=== PATIENT | male | born 1985 | race Caucasian/White ===

== ENCOUNTER 2017-03-24 06:27 | Emergency (ER) | payer MEDICAID ==
[2017-03-24] MEDS ORDERED: NS 1,000 ML IV ONE ×2 (06:44→07:07)
[2017-03-24] MEDS ORDERED: ONDANSETRON 4 MG/2 ML VIAL IVP ONE ×2 (06:44→07:21)
[2017-03-24] MEDS ORDERED: HALOPERIDOL LACT 5 MG/ML INJ IVP ONE ×2 (06:48→07:07)
--- NOTE | 2017-03-24 06:52 | EDPHY ---
H & P Stated Complaint: c/o n/v/abd pain starting this am Time Seen by Provider: 03/24/17 06:47 HPI/ROS: CHIEF COMPLAINT: Vomiting HISTORY OF PRESENT ILLNESS: The patient is a 31-year-old man with a history of cannabis hyperemesis syndrome as well as remote intussusception and ectopic gastric the mucosa. He complains of severe nausea and retching that began at 4: 30 a.m. this morning. No pain. No fever. He does continue to use cannabis daily. He denies, ingestants currently. No blood in his vomit. No diarrhea. REVIEW OF SYSTEMS: Constitutional: denies: chills, fever, recent illness, recent injury EENTM: denies: blurred vision, double vision, nose congestion Respiratory: denies: cough, shortness of breath Cardiac: denies: chest pain, irregular heart rate, lightheadedness, palpitations Gastrointestinal/Abdominal: See HPI Genitourinary: denies: dysuria, frequency, hematuria, pain Musculoskeletal: denies: joint pain, muscle pain Skin: denies: lesions, rash, jaundice, bruising Neurological: denies: headache, numbness, paresthesia, tingling, dizziness, weakness Hematologic/Lymphatic: denies: blood clots, easy bleeding, easy bruising Immunologic/allergic: denies: HIV/AIDS, transplant EXAM: GENERAL: retching HEAD: Atraumatic, normocephalic. EYES: Pupils equal round and reactive to light, extraocular movements intact, sclera anicteric, conjunctiva are normal. ENT: TMs normal, nares patent, oropharynx clear without exudates. Moist mucous membranes. NECK: Normal range of motion, supple without lymphadenopathy or JVD. LUNGS: Breath sounds clear to auscultation bilaterally and equal. No wheezes rales or rhonchi. HEART: Regular rate and rhythm without murmurs, rubs or gallops. ABDOMEN: Soft, nontender, normoactive bowel sounds. No guarding, no rebound. No masses appreciated. BACK: No CVA tenderness, no spinal tenderness, step-offs or deformities EXTREMITIES: Normal range of motion, no pitting or edema. No clubbing or cyanosis. NEUROLOGICAL: Cranial nerves II through XII grossly intact. Normal speech, normal gait. 5/5 strength, normal movement in all extremities, normal sensation PSYCH: Normal mood, normal affect. SKIN: Warm, dry, normal turgor, no visible rashes or lesions. Source: Patient Exam Limitations: No limitations - Medical/Surgical History Hx Asthma: Yes Hx Chronic Respiratory Disease: No Hx Diabetes: No Hx Cardiac Disease: No Hx Renal Disease: No Hx Cirrhosis: No Hx Alcoholism: No Hx HIV/AIDS: No Hx Splenectomy or Spleen Trauma: No Other PMH: SURG--STOMACH TUMOR, cannabis hyperemesis, gastric ulcer, gerd, asthma - Family History Significant Family History: No pertinent family hx - Social History Smoking Status: Former smoker Alcohol Use: Sober Drug Use: None Constitutional: Initial Vital Signs Temperature (C) 36.8 C 03/24/17 06:31 Heart Rate 121 H 03/24/17 06:31 Respiratory Rate 22 H 03/24/17 06:31 Blood Pressure 144/99 H 03/24/17 06:31 O2 Sat (%) 95 03/24/17 06:31 O2 Delivery Mode Room Air Allergies/Adverse Reactions: No Known Allergies Allergy (Verified 03/24/17 06:36) Home Medications: Medication Instructions Recorded Calcium Carbonate [Tums 500MG (*)] 500 mg PO TID PRN 11/30/15 Fexofenadine HCl [Rebeka Allergy] 60 mg PO DAILY 11/30/15 Ondansetron Odt [Zofran Odt 4 mg 4 mg PO Q4 PRN #20 tab 03/24/17 (RX)] Zantac 03/24/17 Medical Decision Making ED Course/Re-evaluation: 8:00 a.m. the patient's vomiting and abdominal cramping have resolved however he is feeling anxious after the Haldol. He states that anxiety attacks are something he suffers from regularly any ways. 8:45 a.m. the patient continues to feel well as far as not having nausea vomiting or abdominal pain. He persistent feeling anxious though. He is asking for Ativan. I will treat him with this and observe. He is tolerating p. o.. He is ambulatory here in the department. 10:20 a.m. patient is sleeping comfortably. We are waiting for his mom to give him a ride home. Differential Diagnosis: Partial list of the Differential diagnosis considered include but were not limited to; cyclic vomiting, cannabis hyperemesis, anxiety and although unlikely based on the history and physical exam, I also considered peptic ulcer disease, appendicitis, obstruction, ischemia, volvulus. I discussed these differential diagnoses and the plan with the patient as well as the usual and expected course. The patient understands that the diagnosis is provisional and that in medicine we are not always correct and that further workup is often warranted. Usual and customary warnings were given. All of the patient's questions were answered. The patient was instructed to return to the emergency department should the symptoms at all worsen or return, otherwise to followup with the physician as we discussed. - Data Points Medications Given: Discontinued Medications Al Hydroxide/Mg Hydroxide (Maalox Susp) 30 ml PO EDNOW ONE Stop: 03/24/17 07:11 Last Admin: 03/24/17 09:55 Dose: Not Given Haloperidol Lactate (Haldol Injection) 5 mg IVP EDNOW ONE Stop: 03/24/17 06:49 Last Admin: 03/24/17 06:51 Dose: 5 mg Haloperidol Lactate (Haldol Injection) 5 mg IVP EDNOW ONE Stop: 03/24/17 07:08 Last Admin: 03/24/17 07:09 Dose: 5 mg Sodium Chloride (Ns) 1,000 mls @ 0 mls/hr IV EDNOW ONE; Wide Open PRN Reason: Protocol Stop: 03/24/17 06:45 Last Admin: 03/24/17 06:46 Dose: 1,000 mls Sodium Chloride (Ns) 1,000 mls @ 0 mls/hr IV EDNOW ONE; Wide Open PRN Reason: Protocol Stop: 03/24/17 07:08 Last Admin: 03/24/17 07:12 Dose: 1,000 mls Lorazepam (Ativan Injection) 1 mg IVP EDNOW ONE Stop: 03/24/17 08:45 Last Admin: 03/24/17 08:54 Dose: 1 mg Ondansetron HCl (Zofran) 4 mg IVP EDNOW ONE Stop: 03/24/17 06:45 Last Admin: 03/24/17 06:48 Dose: 4 mg Ondansetron HCl (Zofran) 4 mg IVP EDNOW ONE Stop: 03/24/17 07:22 Last Admin: 03/24/17 07:23 Dose: 4 mg Promethazine HCl (Phenergan) 12.5 mg IVP ONCE ONE Stop: 03/24/17 09:52 Last Admin: 03/24/17 09:54 Dose: 12.5 mg Departure - Departure Disposition: Home, Routine, Self-Care Clinical Impression: Cannabis hyperemesis syndrome concurrent with and due to cannabis abuse Condition: Fair Instructions: Acute Nausea and Vomiting (ED) Referrals: NONE *PRIMARY CARE P,. [Primary Care Provider] - As per Instructions [facility],. [Clinic] - As per Instructions Prescriptions: Ondansetron Odt [Zofran Odt 4 mg (RX)] 4 mg PO Q4 PRN #20 tab PRN Reason: Nausea & Vomiting
[2017-03-24] MEDS: MAG HYDROX/AL HYDROX/SIMETH 30 ML UDCUP PO ONE ×2 (07:12→09:55)
[2017-03-24] MEDS ORDERED: LORazepam 2 MG/ML INJ IVP ONE (08:44)
[2017-03-24] MEDS ORDERED: PROMETHAZINE HCL 25 MG/ML INJ IVP ONE (09:51)
[2017-03-24 10:13] VITALS: BP 143/98; PULSE 102; RESP 18; TEMP 97.3; O2SAT 95
== END 2017-03-24 10:36 | disposition home or self-care (01) ==
DX: F12.188 Cannabis abuse with other cannabis-induced disorder (principal); J45.909 Unspecified asthma, uncomplicated; E86.9 Volume depletion, unspecified; Z87.891 Personal history of nicotine dependence
CPT/HCPCS: 96374; J1630; J2060; J2405; J2550

== ENCOUNTER 2017-03-27 03:21 | Emergency (ER) | payer MEDICAID ==
[2017-03-27] MEDS ORDERED: FAMOTIDINE 20 MG/NACL 50 ML IV ONE (03:24)
[2017-03-27] MEDS ORDERED: NS 1,000 ML IV ONE ×2 (03:24→04:18)
[2017-03-27] MEDS ORDERED: HALOPERIDOL LACT 5 MG/ML INJ IVP ONE (03:24)
[2017-03-27 03:32] LABS: PLATELET COUNT 249 10^3/uL (150-400)
--- NOTE | 2017-03-27 04:18 | EDPHY ---
H & P Stated Complaint: Nausea and vomiting Time Seen by Provider: 03/27/17 03:24 HPI/ROS: HPI The patient presents brought in by ambulance for nausea and vomiting which has been present for the last 36 hr. He reports that he has not been able to have any p.o. intake during this time. He has a history of cannabinoid hyperemesis syndrome. He was seen in the emergency room just 4 days ago for this. He felt better after receiving medications including Haldol and Ativan. He went home in use marijuana and within 1 hr he was experiencing vomiting. He denies any abdominal pain currently. He does not have any medication at home that has helped him with this. He says hot showers help his symptoms. In the ambulance, blood glucose was normal, he received 4 of Zofran which helped his symptoms somewhat. REVIEW OF SYSTEMS Constitutional: No fever, no chills. Eyes: No discharge. ENT: No sore throat. Cardiovascular: No chest pain, no palpitations. Respiratory: No cough, no shortness of breath. Gastrointestinal: See HPI Genitourinary: No hematuria. Musculoskeletal: No back pain. Skin: No rashes. Neurological: No headache. PMHx: History of cannabinoid hyperemesis syndrome Soc Hx: Currently residing at a hotel, daily long-term marijuana user PHYSICAL General Appearance: Alert, no distress Eyes: Pupils equal and round no pallor or injection ENT, Mouth: Mucous membranes dry Respiratory: There are no retractions, lungs are clear to auscultation Cardiovascular: Regular rate and rhythm Gastrointestinal: Abdomen is soft and non-tender, no masses, bowel sounds normal Neurological: A&O, moves all extremities Skin: Warm and dry, no rashes Musculoskeletal: Neck is supple non tender Extremities: symmetrical, full range of motion Psychiatric: Patient is oriented X 3, there is no agitation Source: Patient Exam Limitations: No limitations - Medical/Surgical History Hx Asthma: Yes Hx Chronic Respiratory Disease: No Hx Diabetes: No Hx Cardiac Disease: No Hx Renal Disease: No Hx Cirrhosis: No Hx Alcoholism: No Hx HIV/AIDS: No Hx Splenectomy or Spleen Trauma: No Other PMH: SURG--STOMACH TUMOR, cannabis hyperemesis, gastric ulcer, gerd, asthma - Social History Smoking Status: Former smoker Allergies/Adverse Reactions: No Known Allergies Allergy (Verified 03/24/17 06:36) Home Medications: Medication Instructions Recorded Calcium Carbonate [Tums 500MG (*)] 500 mg PO TID PRN 11/30/15 Fexofenadine HCl [Rebeka Allergy] 60 mg PO DAILY 11/30/15 Ondansetron Odt [Zofran Odt 4 mg 4 mg PO Q4 PRN #20 tab 03/24/17 (RX)] Zantac 03/24/17 Medical Decision Making Procedures: Bedside right upper quadrant limited abdominal Ultrasound- performed and interpreted by me. Indication: Elevated bilirubin and vomiting Findings: No gallstones, no pericholecystic fluid, no gallbladder wall thickening Impression: No sonographic evidence of cholecystitis or cholelithiasis. Differential Diagnosis: 31-year-old male brought in by ambulance for nausea and vomiting for 36 hr thought to be caused by cannabinoid hyperemesis syndrome in the setting of marijuana use. On exam, he is slightly tachycardic, mucous membranes are dry, abdominal exam is benign. Differential diagnosis includes cannabinoid hyperemesis syndrome, cyclic vomiting syndrome, dehydration, electrolyte disturbance. In the emergency department, patient was given IV fluids, famotidine, Haldol. He had improvement in his symptoms. Labs were checked and did reveal elevated bilirubin level. Because of this ultrasound was performed and did not show any signs of a biliary disease. After fluids, he was hit feeling much better and was able to tolerate water by mouth. He would like to be discharged home. He already has Zofran at home. I counseled him extensively on terminating his marijuana use as this is likely contributing to his current symptoms. He is in agreement with this. - Data Points Laboratory Results: Laboratory Results 03/27/17 03:20 03/27/17 03:20 03/27/17 03/27/17 03:20 03:20 WBC 13.93 10^3/uL H 10^3/uL (3.80-9.50) RBC 5.64 10^6/uL 10^6/uL (4.40-6.38) Hgb 17.5 g/dL g/dL (13.7-17.5) Hct 48.7 % % (40.0-51.0) MCV 86.3 fL fL (81.5-99.8) MCH 31.0 pg pg (27.9-34.1) MCHC 35.9 g/dL g/dL (32.4-36.7) RDW 14.0 % % (11.5-15.2) Plt Count 249 10^3/uL 10^3/uL (150-400) MPV 10.7 fL fL (8.7-11.7) Neut % (Auto) 79.8 % H % (39.3-74.2) Lymph % (Auto) 10.9 % L % (15.0-45.0) [place] % (Auto) 8.5 % % (4.5-13.0) Eos % (Auto) 0.1 % L % (0.6-7.6) Baso % (Auto) 0.2 % L % (0.3-1.7) Nucleat RBC Rel Count 0.0 % % (0.0-0.2) Absolute Neuts (auto) 11.11 10^3/uL H 10^3/uL (1.70-6.50) Absolute Lymphs (auto) 1.52 10^3/uL 10^3/uL (1.00-3.00) Absolute Monos (auto) 1.19 10^3/uL H 10^3/uL (0.30-0.80) Absolute Eos (auto) 0.01 10^3/uL L 10^3/uL (0.03-0.40) Absolute Basos (auto) 0.03 10^3/uL 10^3/uL (0.02-0.10) Absolute Nucleated RBC 0.00 10^3/uL 10^3/uL (0-0.01) Immature Gran % 0.5 % % (0.0-1.1) Immature Gran # 0.07 10^3/uL 10^3/uL (0.00-0.10) Sodium 147 mEq/L H mEq/L (135-145) Potassium 3.2 mEq/L L mEq/L (3.5-5.2) Chloride 103 mEq/L mEq/L (97-110) Carbon Dioxide 25 mEq/l mEq/l (22-31) Anion Gap 19 mEq/L H mEq/L (8-16) BUN 15 mg/dL mg/dL (7-23) Creatinine 0.9 mg/dL mg/dL (0.7-1.3) Estimated GFR > 60 Glucose 123 mg/dL H mg/dL (70-100) Calcium 9.2 mg/dL mg/dL (8.5-10.4) Total Bilirubin 2.5 mg/dL H mg/dL (0.1-1.4) Conjugated Bilirubin 1.0 mg/dL H mg/dL (0.0-0.5) Unconjugated Bilirubin 1.5 mg/dL H mg/dL (0.0-1.1) AST 61 IU/L H IU/L (17-59) ALT 48 IU/L IU/L (21-72) Alkaline Phosphatase 74 IU/L IU/L (38-126) Total Protein 7.7 g/dL g/dL (6.3-8.2) Albumin 4.6 g/dL g/dL (3.5-5.0) Lipase 26 IU/L IU/L (23-300) Medications Given: Discontinued Medications Haloperidol Lactate (Haldol Injection) 2.5 mg IVP EDNOW ONE Stop: 03/27/17 03:25 Last Admin: 03/27/17 03:33 Dose: 2.5 mg Sodium Chloride (Ns) 1,000 mls @ 0 mls/hr IV EDNOW ONE; Wide Open PRN Reason: Protocol Stop: 03/27/17 03:25 Last Admin: 03/27/17 03:33 Dose: 1,000 mls Famotidine/Sodium Chloride (Pepcid 20 Mg (Premix)) 50 mls @ 200 mls/hr IV EDNOW ONE Stop: 03/27/17 03:38 Last Admin: 03/27/17 03:34 Dose: 50 mls Sodium Chloride (Ns) 1,000 mls @ 0 mls/hr IV EDNOW ONE; Wide Open PRN Reason: Protocol Stop: 03/27/17 04:19 Last Admin: 03/27/17 04:23 Dose: 1,000 mls Departure - Departure Disposition: Home, Routine, Self-Care Clinical Impression: Cannabinoid hyperemesis syndrome Nausea & vomiting Qualifiers: Vomiting type: unspecified Vomiting Intractability: non-intractable Qualified Code(s): R11.2 - Nausea with vomiting, unspecified Condition: Good Instructions: Acute Nausea and Vomiting (ED) Additional Instructions: Please make sure to drink clear fluids. You should return to the emergency department if your worse in any way. Referrals: [facility],. [Clinic] - As per Instructions
[2017-03-27 06:01] VITALS: O2SAT 98
[2017-03-28 06:13] VITALS: PULSE 115
[2017-03-28 06:14] VITALS: BP 145/89; RESP 20; TEMP 98.1
== END 2017-03-27 06:01 | disposition home or self-care (01) ==
LOC: EDUNIT#
DX: R11.2 Nausea with vomiting, unspecified (principal); F12.188 Cannabis abuse with other cannabis-induced disorder; E86.9 Volume depletion, unspecified; J45.909 Unspecified asthma, uncomplicated; Z87.891 Personal history of nicotine dependence
CPT/HCPCS: 96365; J1630

== ENCOUNTER 2017-04-07 02:10 | Emergency (ER) | payer MEDICAID ==
[2017-04-07 02:17] VITALS: RESP 18; TEMP 98.2
[2017-04-07] MEDS ORDERED: FAMOTIDINE 20 MG/NACL 50 ML IV ONE (02:32)
[2017-04-07 02:38] LABS: PLATELET COUNT 238 10^3/uL (150-400)
[2017-04-07] MEDS ORDERED: LIDOCAINE 2% VISCOUS 15 ML UDCUP PO ONE (03:11)
[2017-04-07] MEDS ORDERED: MAG HYDROX/AL HYDROX/SIMETH 30 ML UDCUP PO ONE (03:11)
--- NOTE | 2017-04-07 03:15 | EDPHY ---
H & P Stated Complaint: Epigastric Pain Time Seen by Provider: 04/07/17 02:51 HPI/ROS: HPI The patient presents with epigastric pain that began at 1:00 a.m. and awoke from sleep. The pain is sharp and burning, it radiates throughout his abdomen. Has been constant. He is brought in by ambulance. He has not had any associated nausea or vomiting. He had a similar episode last night which improved on its own. He was seen by me in the emergency department about 10 days ago for cannabinoid hyperemesis syndrome. Several days following that he was unable to eat or drink anything and he says now he is eating a lot because his vomiting is so much better. He last ate at about 7:00 p.m., chicken and cheese sandwich, pudding. He has not taken any medication for this. He reports multiple previous episodes over the years of similar pain. He was taking Tums, though stopped taking them when he had vomiting from his hyperemesis syndrome. He denies any dark or bloody stools. He has not have any shortness of breath, dizziness. REVIEW OF SYSTEMS Constitutional: No fever, no chills. Eyes: No discharge. ENT: No sore throat. Cardiovascular: No chest pain, no palpitations. Respiratory: No cough, no shortness of breath. Gastrointestinal: See HPI Genitourinary: No hematuria. Musculoskeletal: No back pain. Skin: No rashes. Neurological: No headache. PMHx: Cannabinoid hyperemesis syndrome with history of GERD with gastric ulcer Soc Hx: Housed, has stopped using marijuana for the last 10 days PHYSICAL General Appearance: Alert, no distress Eyes: Pupils equal and round no pallor or injection ENT, Mouth: Mucous membranes moist Respiratory: There are no retractions, lungs are clear to auscultation Cardiovascular: Regular rate and rhythm Gastrointestinal: Abdomen is soft a with mild epigastric tenderness no masses, bowel sounds normal Neurological: A&O, moves all extremities Skin: Warm and dry, no rashes Musculoskeletal: Neck is supple non tender Extremities: symmetrical, full range of motion Psychiatric: Patient is oriented X 3, there is no agitation Source: Patient, EMS Exam Limitations: No limitations - Personal History Current Tetanus/Diphtheria Vaccine: Unsure Current Tetanus Diphtheria and Acellular Pertussis (TDAP): Unsure - Medical/Surgical History Hx Asthma: Yes Hx Chronic Respiratory Disease: No Hx Diabetes: No Hx Cardiac Disease: No Hx Renal Disease: No Hx Cirrhosis: No Hx Alcoholism: No Hx HIV/AIDS: No Hx Splenectomy or Spleen Trauma: No Other PMH: SURG--STOMACH TUMOR, cannabis hyperemesis, gastric ulcer, gerd, asthma - Social History Smoking Status: Former smoker Constitutional: Initial Vital Signs Temperature (C) 36.8 C 04/07/17 02:14 Heart Rate 91 04/07/17 02:14 Respiratory Rate 18 04/07/17 02:14 Blood Pressure 111/86 H 04/07/17 02:14 O2 Sat (%) 96 04/07/17 02:14 O2 Delivery Mode Room Air Allergies/Adverse Reactions: No Known Allergies Allergy (Verified 04/07/17 02:13) Home Medications: Medication Instructions Recorded Calcium Carbonate [Tums 500MG (*)] 500 mg PO TID PRN 11/30/15 Ondansetron Odt [Zofran Odt 4 mg 4 mg PO Q4 PRN #20 tab 03/24/17 (RX)] Zantac 03/24/17 Famotidine [Pepcid 20 MG (*)] 20 mg PO BID #30 tab 04/07/17 Medical Decision Making Differential Diagnosis: 31-year-old male, known history of GERD and gastritis, presents brought in by ambulance for epigastric abdominal pain for the last 2 nights. Exam, vital signs normal, mild epigastric tenderness. Differential diagnosis includes gastritis, GERD, less likely biliary colic given normal right upper quadrant ultrasound performed on last visit. S likely ACS given young age. In the emergency department, patient was given IV fluids, GI cocktail, famotidine with improvement in his symptoms. He felt well enough to go home. He will be discharged with instructions for antacids and prescription for famotidine. I have discussed dietary modification with him at length. - Data Points Laboratory Results: Laboratory Results 04/07/17 02:00 04/07/17 02:00 04/07/17 04/07/17 02:00 02:00 WBC 7.03 10^3/uL 10^3/uL (3.80-9.50) RBC 5.49 10^6/uL 10^6/uL (4.40-6.38) Hgb 16.7 g/dL g/dL (13.7-17.5) Hct 46.9 % % (40.0-51.0) MCV 85.4 fL fL (81.5-99.8) MCH 30.4 pg pg (27.9-34.1) MCHC 35.6 g/dL g/dL (32.4-36.7) RDW 13.8 % % (11.5-15.2) Plt Count 238 10^3/uL 10^3/uL (150-400) MPV 11.5 fL fL (8.7-11.7) Neut % (Auto) 53.8 % % (39.3-74.2) Lymph % (Auto) 29.3 % % (15.0-45.0) [place] % (Auto) 12.4 % % (4.5-13.0) Eos % (Auto) 3.0 % % (0.6-7.6) Baso % (Auto) 0.9 % % (0.3-1.7) Nucleat RBC Rel Count 0.0 % % (0.0-0.2) Absolute Neuts (auto) 3.79 10^3/uL 10^3/uL (1.70-6.50) Absolute Lymphs (auto) 2.06 10^3/uL 10^3/uL (1.00-3.00) Absolute Monos (auto) 0.87 10^3/uL H 10^3/uL (0.30-0.80) Absolute Eos (auto) 0.21 10^3/uL 10^3/uL (0.03-0.40) Absolute Basos (auto) 0.06 10^3/uL 10^3/uL (0.02-0.10) Absolute Nucleated RBC 0.00 10^3/uL 10^3/uL (0-0.01) Immature Gran % 0.6 % % (0.0-1.1) Immature Gran # 0.04 10^3/uL 10^3/uL (0.00-0.10) Sodium 146 mEq/L H mEq/L (135-145) Potassium 3.6 mEq/L mEq/L (3.5-5.2) Chloride 108 mEq/L mEq/L (97-110) Carbon Dioxide 22 mEq/l mEq/l (22-31) Anion Gap 16 mEq/L mEq/L (8-16) BUN 13 mg/dL mg/dL (7-23) Creatinine 0.9 mg/dL mg/dL (0.7-1.3) Estimated GFR > 60 Glucose 125 mg/dL H mg/dL (70-100) Calcium 9.8 mg/dL mg/dL (8.5-10.4) Total Bilirubin 0.6 mg/dL mg/dL (0.1-1.4) AST 20 IU/L IU/L (17-59) ALT 30 IU/L IU/L (21-72) Alkaline Phosphatase 73 IU/L IU/L (38-126) Total Protein 6.4 g/dL g/dL (6.3-8.2) Albumin 3.9 g/dL g/dL (3.5-5.0) Lipase 200 IU/L IU/L (23-300) Medications Given: Discontinued Medications Al Hydroxide/Mg Hydroxide (Maalox Susp) 30 ml PO EDNOW ONE Stop: 04/07/17 03:12 Last Admin: 04/07/17 03:14 Dose: 30 ml Famotidine/Sodium Chloride (Pepcid 20 Mg (Premix)) 50 mls @ 200 mls/hr IV EDNOW ONE Stop: 04/07/17 02:46 Last Admin: 04/07/17 02:36 Dose: 50 mls Lidocaine (Lidocaine 2% Viscous) 15 ml PO EDNOW ONE Stop: 04/07/17 03:12 Last Admin: 04/07/17 03:14 Dose: 15 ml Departure - Departure Disposition: Home, Routine, Self-Care Clinical Impression: Gastritis Qualifiers: Gastritis type: unspecified gastritis Chronicity: acute Gastritis bleeding: without bleeding Qualified Code(s): K29.00 - Acute gastritis without bleeding Condition: Good Instructions: Gastritis (ED), Diet for Stomach Ulcers and Gastritis (ED) Additional Instructions: Please avoid eating any food 2 hr before bed. Please do small frequent meals. You may want to sleep with several pillows under your head to see if this helps her symptoms. You can take Tums in addition to the medication I have prescribed. Referrals: [facility],. [Clinic] - As per Instructions Prescriptions: Famotidine [Pepcid 20 MG (*)] 20 mg PO BID #30 tab
[2017-04-07 03:34] VITALS: BP 122/89; PULSE 71; O2SAT 99
== END 2017-04-07 03:33 | disposition home or self-care (01) ==
LOC: EDUNIT#
DX: K29.00 Acute gastritis without bleeding (principal); J45.909 Unspecified asthma, uncomplicated; Z87.891 Personal history of nicotine dependence
CPT/HCPCS: 96374